=== PATIENT | male | born 1985 | race Caucasian/White ===

== ENCOUNTER 2017-05-08 15:25 | Inpatient (IN) | payer OTHER ==
[~2017-05-08] VITALS: Ht 182.9 cm; Wt 107.6 kg
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
--- NOTE | ~2017-05-08 | D ---
[facility] [place] [address] DISCHARGE SUMMARY Name: BLAKE BLAKE Room #: 434-P ADM IN M.R.#: [id number] Admission: 05/08/17 Attend Phys: Cesilia Mcdaniel Discharge: Date of : 85 Report #: [id number] THIS REPORT FOR: //name// CC: Bandar Hernandez FINAL DIAGNOSES: 1. Right flank wound, status post surgical debridement. 2. Right renal stone. 3. Chronic paraplegia. 4. Chronic suprapubic catheter. 5. Hematuria. HOSPITAL COURSE: The patient was admitted electively for surgical debridement of the right flank and abdominal wall wound. Please see Dr. Fleming's notes. This was uneventful. He also was experiencing hematuria. He does have a chronic suprapubic catheter. CT revealed a nonobstructing 8 mm right renal stone. Urology saw him, but at this time, no invasive treatment. They will follow him as an outpatient. PHYSICAL EXAMINATION: On the day of discharge: GENERAL: He was awake and alert. VITAL SIGNS: Stable. LUNGS: Clear. HEART: Regular. ABDOMEN: Soft, normoactive bowel sounds. EXTREMITIES: No edema. DISPOSITION: To be transferred back to [facility] facility for wound care. CURRENT MEDICATIONS: To continue including IV antibiotics. He will follow up with Dr. Ramirez and Dr. Fleming at the facility. <ELECTRONICALLY SIGNED> By: Ge Greenfield MD 05/11/17 0926 [id number] [id number] Ge Greenfield MD /nt
--- NOTE | ~2017-05-08 | S ---
[facility] [place] [address] SURGICAL PATH RPT PROCEDURE Name: BLAKE ESCOBEDO Room #: 434-P ADM IN M.R.#: [id number] Admission: 05/08/17 Date of : 85 Discharge: Report #: [id number] Path Case #: [id number] PATHOLOGY REPORT COLLECTION DATE: 05/09/2017 RECEIVED DATE: 05/09/2017 SUBMITTING PHYS: Dr. Dar Fleming OTHER PHYS: Dr. Bandar Ramirez SPECIMEN(S) RECEIVED: A.Tissue right chest wall wound * * * * * * * * * * * * FINAL DIAGNOSIS: "Tissue right chest wall wound", debridement: - Skin, subcutaneous tissue and skeletal muscle with acute and chronic inflammation, focal necrosis, granulation tissue, fibrosis, foreign body type giant cell response, mild skeletal muscle atrophy and pseudoepitheliomatous hyperplasia. (CLW:nguyen; 05/10/2017) PATHOLOGIST: Xi Cordova M.D. REPORT ELECTRONICALLY SIGNED BY: Xi Cordova M.D. DATE/TIME: 05/10/2017 15:46 * * * * * * * * * * * * GROSS PATHOLOGY: The specimen is received in formalin, labeled "Blake Escobedo, tissue right chest wall wound," and consists of 3 segments of partially necrotic yellow-orange fibroadipose tissue covered with unremarkable pink-pablo skin measuring 7.5 x 5.9 x 1.5 cm in aggregate dimensions. Cloth Tester Quality sections are submitted in cassette A1-A2. (SDY; 05/09/2017) CLINICAL HISTORY: Debridement Chest wall wound INITIAL CPT CODE(S): A; 07947 Professional services performed by [facility] at [facility] [address], [place] [address] [facility] [address] [place] [address] SURGICAL PATH RPT PROCEDURE Name: BLAKE ESCOBEDO Room #: 434-P ADM IN M.R.#: [id number] Admission: 05/08/17 Date of : 85 Discharge: Report #: [id number] Path Case #: [id number] [facility] at [address] [place] [address], [place] [address]. [facility] [address] [place] [address] PHONE: [phone] DIRECTOR: Shawn Licona M.D. * * * END OF REPORT * * *
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
[~2017-05-08 15:25] MED LIST: ACETAMINOPHEN325 M1 PO; AMBEREN PO; AMBIEN 5 MG TABL5 M1 PO; BACTRIM 400-801 EACH PO; BACTROBAN CREAM30 G1 TOP; BISACODYL SUPP10 MG RE; CELEXA10 MG PO; CIPROFLOXACIN500 M1 PO; COLACE 100 MG100 MG PO; DANTRIUM25 MG PO; DIPHENHIST50 MG PO; ENABLEX PO; ENABLEX15 MG PO; ENOXAPARIN40 MG/0.1 SUBQ; FERREX 150 PLU1 EAC1 PO; FOLIC ACID1 MG PO; HYDROCODON-ACE1 EAC7 PO; IBUPROFEN 400400 M2 PO; IBUPROFEN 800800 M1 PO; JUVEN PACKET1 EAC1 PO; LORTAB 5 MG/5001 TAB PO; MELATONIN5 M1 PO; MERREM1 GM IV; METAMUCIL POWD798 GM PO; MIRALAX17 GM PO; MUCINEX600 MG PO; NICOTINE TRANSD21 M1 TRANSDERM; NYAMYC15 GM TOP; ONE DAILY COMP1 EAC1 PO; OXYBUTYNIN; OXYBUTYNIN 5 MG5 M2 PO; PHENERGAN 25 MG25 M1 PO; POLYSACCHARIDE150 MG PO; PROTONIX40 M1 PO; SECURA PROTECTI50 GM TOP; SEE COMMENTS; VANCO1GM IV; VENTOLIN HFA 1818 GM INH; VITAMINC500 PO; ZINC CHELATE50 MG PO; [UNRECOGNIZED DRUG - REMARK]
[2017-05-08 16:00] VITALS: BP 111/56
[2017-05-08 21:16] VITALS: BP 105/56
[2017-05-08 22:20] LABS: HEMATOCRIT 37.4 % (42.0-52.0); MCH 24.2 pg (26.0-34.0); MCHC 32.1 g/dL (28.0-37.0); MCV 75.5 fL (80.0-100.0); RBC 4.95 mil/uL (4.50-6.00); RDW 20.7 % (10.5-14.5); WBC 8.3 thou/uL (4.0-11.0)
[2017-05-08 22:27] LABS: CALCIUM 9.2 mg/dL (8.5-10.1); CREATININE 1.1 mg/dL (0.7-1.3); POTASSIUM 4.1 mmol/L (3.5-5.1)
[2017-05-08 23:59] VITALS: BP 104/47
[2017-05-09] VITALS (8 sets, daily range): BP systolic 106–130; BP diastolic 54–82
[2017-05-10 03:35] VITALS: BP 113/60
[2017-05-10 08:00] VITALS: BP 100/57
[2017-05-10] MEDS ORDERED: IBUPROFEN 400400 M2 PO (09:32)
[2017-05-10] MEDS ORDERED: HYDROCODON-ACE1 EAC7 PO (09:32)
[2017-05-10] MEDS ORDERED: BISAC-EVAC10 MG RECTAL (09:33)
[2017-05-10] MEDS ORDERED: HYDROCORTISONE30 G9 TOP (09:33)
[2017-05-10] MEDS ORDERED: ZINC OXIDE56.7 GM TOP (09:33)
[2017-05-10] MEDS ORDERED: TUMS PO (09:33)
[2017-05-10 16:00] VITALS: BP 112/60
[2017-05-10 20:30] VITALS: BP 116/64
[2017-05-11 05:59] VITALS: BP 126/67
[2017-05-11 08:49] VITALS: BP 113/70
== END 2017-05-11 18:17 | DRG 579 ==
LOC: 4S 15:25
PROVIDERS: Internal Medicine
PROC: 0KBH0ZZ Excision of Right Thorax Muscle, Open Approach (ICD-10-PCS; principal; 2017-05-09)
DX: L89.893 Pressure ulcer of other site, stage 3 (principal); G82.20 Paraplegia, unspecified; L89.154 Pressure ulcer of sacral region, stage 4; N20.0 Calculus of kidney; R31.9 Hematuria, unspecified; N31.9 Neuromuscular dysfunction of bladder, unspecified; E66.9 Obesity, unspecified; Z88.2 Allergy status to sulfonamides; Z88.1 Allergy status to other antibiotic agents; Z91.040 Latex allergy status; Z82.49 Family history of ischemic heart disease and other diseases of the circulatory system; Z83.3 Family history of diabetes mellitus; Z87.891 Personal history of nicotine dependence; Z68.32 Body mass index [BMI] 32.0-32.9, adult; Z79.899 Other long term (current) drug therapy; X58.XXXA Exposure to other specified factors, initial encounter; Y93.89 Activity, other specified; Y92.89 Other specified places as the place of occurrence of the external cause; Y99.8 Other external cause status
CPT/HCPCS: 10102; 27001; 50010; 50101; 50386; 50403; 53353; 53354; 62110; 62900; 70005